=== PATIENT | female | born 1945 | race Hispanic/Latino ===

== ENCOUNTER 2017-10-24 07:48 | Day surgery (SDC) | payer MEDICARE, OTHER ==
[~2017-10-24] VITALS: Ht 157.5 cm; Wt 63.6 kg
[~2017-10-24 07:48] MED LIST: AMLO5TAB2 PO; FISH1CAP20 PO; LECI400C4 PO; LEVO25TA54 PO; MAGN400C PO; SODIUM CHLORIDE 0.9% 1000ML 1,000 ML IV ONE; [UNRECOGNIZED DRUG - OTHER] PO
[2017-10-24 08:27] VITALS: BP 150/80
[2017-10-24] MEDS ORDERED: PROPOFOL 10 MG/ML 20ML VIAL IV ONE ×2 (09:49)
[2017-10-24 09:56] VITALS: BP 102/61
[2017-11-07] MEDS ORDERED: CALC-724 PO (14:25)
[2017-11-07] MEDS ORDERED: BIOT5000 PO (14:25)
== END 2017-10-24 10:30 | disposition home or self-care (01) ==
LOC: SUH 07:48 → DAH 07:48 → SUH 10:30
PROVIDERS: ATTEND Internal Medicine Gastroenterology
DX: K92.1 Melena (principal); K22.8 Other specified diseases of esophagus; E03.9 Hypothyroidism, unspecified; M19.90 Unspecified osteoarthritis, unspecified site; Z86.010 Personal history of colon polyps; Z98.890 Other specified postprocedural states
CPT/HCPCS: 43249; 45378; A4606; C1726; J2704 ×2; J7030

== ENCOUNTER 2017-11-10 07:25 | Day surgery (SDC) | payer OTHER ==
[~2017-11-10] VITALS: Ht 157.5 cm; Wt 65.0 kg
[~2017-11-10 07:25] MED LIST changes: +BIOT5000 PO; +CALC-724 PO; -[UNRECOGNIZED DRUG - OTHER] PO
[2017-11-10 07:53] VITALS: BP 143/82
[2017-11-10] MEDS ORDERED: PROPOFOL 10 MG/ML 20ML VIAL IV ONE ×2 (09:02)
== END 2017-11-10 09:45 | disposition home or self-care (01) ==
LOC: DAH 07:25
PROVIDERS: ATTEND Internal Medicine Gastroenterology
DX: K92.1 Melena (principal); D12.0 Benign neoplasm of cecum; K57.90 Diverticulosis of intestine, part unspecified, without perforation or abscess without bleeding; M19.90 Unspecified osteoarthritis, unspecified site; Z86.010 Personal history of colon polyps
CPT/HCPCS: 45380; 88305; J2704 ×2; A4606; J7030

== ENCOUNTER → 2018-02-12 | Outpatient (CLI) | payer OTHER ==
[~2018-02-12] MED LIST changes: -SODIUM CHLORIDE 0.9% 1000ML 1,000 ML IV ONE
== END | disposition home or self-care (01) ==
LOC: OIH 14:06
PROVIDERS: ATTEND Family Medicine
DX: Z13.6 Encounter for screening for cardiovascular disorders (principal)
CPT/HCPCS: 75571

== ENCOUNTER → 2018-10-27 | Outpatient (CLI) | payer OTHER ==
[~2018-10-27] MED LIST changes: -AMLO5TAB2 PO; +AMLO5TAB9 PO; +ASPI-555 PO; +FAMO20TA8 PO; +IBUP-2070 PO; +ROSU5TAB11 PO
== END | disposition home or self-care (01) ==
LOC: SHCH 12:11
PROVIDERS: ATTEND Internal Medicine Cardiovascular Disease
DX: I71.4 Abdominal aortic aneurysm, without rupture (principal)
CPT/HCPCS: 93978

== ENCOUNTER 2018-10-29 05:51 | Observation (INO) | payer OTHER ==
[2018-10-28 16:52] LABS: BASOPHILS % (AUTO) 0.7 % (0.0-5.0); EOSINOPHILS % (AUTO) 1.4 % (0.0-8.0); HEMATOCRIT 35.5 % (36-48); MEAN CORPUSCULAR HEMOGLOBIN 29.1 pg (27.0-33.0); MEAN CORPUSCULAR HGB CONC 34.1 g/dL (32.0-36.0); MEAN CORPUSCULAR VOLUME 85.3 fL (79-99); MONOCYTES % (AUTO) 8.2 % (3.0-13.0); NEUTROPHILS % (AUTO) 53.7 % (40.0-77.0); PLATELET COUNT (AUTO) 232 K/uL (130-400); RED BLOOD CELL COUNT(AUTO) 4.16 MIL/uL (4.00-5.50); RED CELL DISTRIBUTION WIDTH 14.2 % (11.0-15.5); WHITE BLOOD COUNT (AUTO) 5.9 K/uL (4.8-10.8)
[2018-10-28 16:54] LABS: BILIRUBIN,URINE Negative (NEGATIVE); COLOR,URINE Yellow (YELLOW); GLUCOSE, URINE (UA) Negative (NEGATIVE); KETONES,URINE Negative (NEGATIVE); LEUKOCYTE ESTERASE ,URINE Small (NEGATIVE); NITRATE,URINE Negative (NEGATIVE); OCCULT BLOOD,URINE Small (NEGATIVE); PH,URINE 7.5 (5.0-8.0); PROTEIN,URINE Negative (NEGATIVE); UROBILINOGEN,URINE 0.2 mg/dL (0.2-1.0)
[2018-10-28 17:03] VITALS: BP 182/91
[2018-10-28 17:06] LABS: CREATININE 0.6 mg/dL (0.5-1.5); POTASSIUM 3.8 mmol/L (3.5-5.1)
[2018-10-28 17:09] LABS: INR 0.95 (0.85-1.15); PARTIAL THROMBOPLASTIN TIME 27.1 SEC (26.3-35.5)
--- NOTE | 2018-10-28 17:13 | NUR ---
NOTE PAGED MERON TO NOTIFY PATIENT REFUSAL OF BLOOD. NO CALL BACK. NOTIFY IN AM
[2018-10-28 17:35] LABS: APPEARANCE,URINE CLEAR (CLEAR)
[2018-10-28 17:36] LABS: BACTERIA,URINE Rare /HPF (None Seen); RBC,URINE 0-1 /HPF (0-1); SQUAMOUS EPITHELIAL CELL,UR 0-2 /HPF (0-2)
[2018-10-28 17:37] LABS: WBC,URINE 0-1 /HPF (0-1)
[~2018-10-29] VITALS: Ht 160 cm; Wt 69.4 kg
[2018-10-29] VITALS (23 sets, daily range): BP systolic 57–167; BP diastolic 30–91
[~2018-10-29 05:51] MED LIST changes: -BIOT5000 PO; -CALC-724 PO; -FISH1CAP20 PO; -LECI400C4 PO; -MAGN400C PO; +SODIUM CHLORIDE 0.9% 500ML 500 ML IV SCH
--- NOTE | 2018-10-29 07:22 | NUR ---
NOTE PAGED VIJAY CALIX TO NOTIFY BLOOD REFUSAL. WAITING ORTHOPEDIC SHOES SALESPERSON BACK.
--- NOTE | 2018-10-29 07:34 | NUR ---
NOTIFY CALL BACK FROM VIJAY CALIX, NOTIFIED PT REFUSE BLOOD AND BLOOD PRODUCTS.
--- NOTE | 2018-10-29 08:10 | NUR ---
REPORT GIVEN TO HORTENCIA DE LOS SANTOS, PT TRANSFERRED TO 202, PT AAOX3, NO C/O CHEST PAIN NO DISTRESS. NO HEMATOMA NO ACTIVE BLEEDING TO RT GROIN. SITE IS BRUISED S/P PROCEDURE.
--- NOTE | 2018-10-29 08:45 | NUR ---
NOTIFIED ROMEL WAGNER RN OF PT REFUSAL OF BLOOD AND BLOOD PRODUCTS. INFORMED THAT Makenna RIVERS IS AWARE, NO NEW ORDERS WERE RECEIVED.
[2018-10-29] MEDS ORDERED: SODIUM CHLORIDE 0.9% 1000ML 1,000 ML IV ONE (08:54)
[2018-10-29] MEDS ORDERED: IOHEXOL 350 MG/ML 100ML INFUS..BTL IV ONE ×2 (11:59→12:25)
[2018-10-29] MEDS ORDERED: IOHEXOL-350 50ML VIAL IV ONE ×2 (11:59→12:25)
[2018-10-29] MEDS ORDERED: LIDOCAINE HCL 1% 20 ML VIAL ONE (11:59)
[2018-10-29] MEDS ORDERED: HEPARIN SODIUM 1000UNIT/ML 10ML VIAL ONE (11:59)
[2018-10-29] MEDS ORDERED: ATROPINE SULFATE 0.1 MG/ML 10 ML SYG IVP ONE (12:24)
[2018-10-29] MEDS ORDERED: ASPIRIN 81MG TAB.CHEW ONE (13:06)
[2018-10-29] MEDS ORDERED: CLOPIDOGREL BISULFATE 300 MG TAB ONE (13:06)
[2018-10-29] MEDS ORDERED: ACETAMINOPHEN 325 MG TAB PO PRN (13:30)
[2018-10-29] MEDS ORDERED: MORPHINE SULFATE 5 MG/ML VIAL IVP SCH (13:30)
[2018-10-29] MEDS ORDERED: ONDANSETRON HCL 4 MG/2 ML VIAL IVP SCH (13:30)
--- NOTE | 2018-10-29 15:27 | NUR ---
BRANNON CATH 16 [employer] FC INSERTED USING STERILE TECHNIQUE, PT C/O URINE RETENTION , PAIN TO LOWER ABDOMEN AREA , ABDOMEN DISTENDED , TENDER TO TOUCH,
[2018-10-29 16:25] LABS: INR 1.09 (0.85-1.15); PROTHROMBIN TIME 11.4 SEC (9.6-11.6)
[2018-10-29 16:27] LABS: PARTIAL THROMBOPLASTIN TIME > 120.0 SEC (26.3-35.5)
--- NOTE | 2018-10-29 16:39 | NUR ---
NURSING: PT HAD A SMALL HEMATOMA TO RT GROIN, 6 F SHEATH STILL INTACT. HELD MANUAL PRESSURE STARTING [id number] TO 1521. PT BLOOD PRESSURE DECLINED, GIVEN HALF AMP ATROPINE AT 1459 AND BOLUS FLUIDS NS 0.9 IV PT AAOX3, NO CHEST DISCOMFORT, CONTINUE TO MONITOR. HEMATOMA RESOLVED ON ITS OWN. NO ACTIVE BLEEDING DRESSING AND INTACT. PT STABLE NO DISTRESS.
--- NOTE | 2018-10-29 18:36 | NUR ---
INFORMED MINDY [place] PIPE CONNECTOR OF PATIENT'S LOCATION. DR. ARMENTA ORDERED TO ADMIT PATIENT UNDER [employer] SERVICES.
[2018-10-29] MEDS: ATORVASTATIN CALCIUM 10 MG TABLET PO SCH (20:50)
[2018-10-29] MEDS: FAMOTIDINE 20MG TAB 20 MG TAB PO SCH (20:50)
[2018-10-29] MEDS: AMLODIPINE BESYLATE 5 MG TAB PO SCH (21:00)
[2018-10-29] MEDS ORDERED: SODIUM CHLORIDE 0.9% 500ML 500 ML IV SCH (22:59)
[2018-10-29] MEDS ORDERED: CEFAZOLIN SODIUM 1 GM VIAL IVP PRN (23:00)
[2018-10-30] VITALS (13 sets, daily range): BP systolic 116–132; BP diastolic 60–84
--- NOTE | 2018-10-30 00:08 | NUR ---
Informed Patient of PPM in the morning. Patient and Dtr. refused to signed the consent. Patient is requesting for Dr. Gustavo Clarke to insert Permanent pacemaker. Patient and Dtr. requesting to talk to Dr. Chen in the A.M. Will cont. to monitor Patient's condition.
[2018-10-30] MEDS ORDERED: ATROPINE SULFATE 0.1 MG/ML 10 ML SYG IVP ONE (00:43)
--- NOTE | 2018-10-30 01:30 | NUR ---
Discontinued #6 fr. Sheath, from Rt. Groin. Cath intact. Pressure held 30-mins. No Bleeding noted. No hematoma noted. Minor discomfort. Pulses Present by Doppler. Rt. Lower extremity warm. Pressure Drsg. in place. Patient tolerated procedure well. Instructed Patient to remain bedrest until 0730. Will cont. to monitor Patient's status. Patient denies other discomfort at this time.
[2018-10-30 03:52] LABS: HEMATOCRIT 31.5 % (36-48); MEAN CORPUSCULAR HGB CONC 34.3 g/dL (32.0-36.0); MEAN CORPUSCULAR VOLUME 84.6 fL (79-99); NUCLEATED RED BLOOD CELLS 0.1 % (0.0-0.19); PLATELET COUNT (AUTO) 194 K/uL (130-400); RED BLOOD CELL COUNT(AUTO) 3.72 MIL/uL (4.00-5.50); RED CELL DISTRIBUTION WIDTH 14.2 % (11.0-15.5); WHITE BLOOD COUNT (AUTO) 5.6 K/uL (4.8-10.8)
[2018-10-30 04:20] LABS: POTASSIUM 3.2 mmol/L (3.5-5.1)
--- NOTE | 2018-10-30 07:35 | NUR ---
ASSESSMENT ENCOUNTERED PT A&OX3, CALM COOPERATIVE AND DOES NOT APPEAR TO BE IN ANY DISTRESS NOR ANY NEURO DEFICITS PRESENT. PT DENIES PAIN, SOB, NAUSEA. RT GROIN SOFT NONTENDER WITH NO OOZING OR HEMATOMA PRESENT. DP/PT PULSES PALPABLE AND VERIFIED BY DOPPLER. PT REPOSITIONED TO SITTING POSITION, TELEMONITOR DISPLAYS NSR. PT IS NPO FOR PACEMAKER PLACEMENT. CALL LIGHT WITHIN REACH, FAMILY AT BEDSIDE.
--- NOTE | 2018-10-30 08:20 | NUR ---
Report given to Luis Restrepo R.N. Patient in stable condition.
[2018-10-30] MEDS: FAMOTIDINE 20MG TAB 20 MG TAB PO SCH ×2 (09:00→21:31)
[2018-10-30] MEDS ORDERED: LEVOTHYROXINE 25 MCG TABLET PO SCH (09:00)
--- NOTE | 2018-10-30 11:15 | NUR ---
BEDREST COMPLETE PT AMBULATED TO CHAIR, GAIT SLOW BUT STEADY WITH STAND BY ASSIST. PT DENIES PAIN, SOB, NAUSEA OR DIZZINESS. PT RESTING COMFORTABLY, CALL LIGHT WITHIN REACH, FAMILY AT BEDSIDE.
--- NOTE | 2018-10-30 11:24 | NUR ---
LIGHTHEADEDNESS PT C/O LIGHTHEADEDNESS UP IN CHAIR, TELE MONITOR DISPLAYS MOBITZ TYPE I RHYTHM. PT REPOSITIONED BACK TO BED, LIGHTHEADEDNESS HAS RESOLVED BUT PT CONTINUES TO HAVE INTERMITTENT MOBITZ TYPE I AND NSR. CALL LIGHT WITHIN REACH, FAMILY AT BEDSIDE.
[2018-10-30] MEDS ORDERED: LIDOCAINE HCL 1% MDV 50ML VIAL ONE (14:28)
[2018-10-30] MEDS ORDERED: BUPIVACAINE/PF 0.25% 10ML VIAL IJ ONE (14:29)
[2018-10-30] MEDS ORDERED: CEFAZOLIN SODIUM 1 GM VIAL ONE (14:47)
[2018-10-30] MEDS ORDERED: MEPERIDINE-PF 25 MG/ML SYG ONE ×2 (14:54→15:19)
[2018-10-30] MEDS ORDERED: MIDAZOLAM HCL 1 MG/ML 2ML VIAL ONE ×2 (14:54→15:18)
[2018-10-30] MEDS ORDERED: ACETAMINOPHEN-CODEINE 300/30MG TAB PO PRN ×2 (16:00)
[2018-10-30] MEDS ORDERED: ACETAMINOPHEN 325 MG TAB PO PRN (16:00)
--- NOTE | 2018-10-30 16:35 | NUR ---
POST PROCEDURE RECEIVED PT FROM STAFF TOXICOLOGIST, IN SEMI ORTA'S POSITION, A&OX3, CALM COOPERATIVE AND DOES NOT APPEAR TO BE IN ANY DISTRESS NOR ANY NEURO DEFICITS PRESENT. LEFT SHOULDER DRESSING, DRY INTACT AND SECURED WITH ARM SLING. PULSES PALPABLE. PT ON BEDREST FOR 4 HOURS. CALL LIGHT WITHIN REACH, FAMILY AT BEDSIDE.
[2018-10-30] MEDS: CLOPIDOGREL BISULFATE 75 MG TAB PO SCH (17:41)
[2018-10-30] MEDS: ASPIRIN 81MG TAB.CHEW PO SCH (17:42)
[2018-10-30] MEDS: AMLODIPINE BESYLATE 5 MG TAB PO SCH (21:31)
[2018-10-30] MEDS: ATORVASTATIN CALCIUM 10 MG TABLET PO SCH (21:31)
[2018-10-31 03:51] VITALS: BP 134/78
[2018-10-31 05:20] VITALS: BP 81/57
[2018-10-31 05:39] VITALS: BP_SYST 67; BP_SYST 68; BP_DIAS 42
[2018-10-31 05:49] VITALS: BP 106/69
[2018-10-31 05:56] LABS: HEMATOCRIT 30.2 % (36-48); MEAN CORPUSCULAR HGB CONC 34.1 g/dL (32.0-36.0); MEAN CORPUSCULAR VOLUME 85.1 fL (79-99); PLATELET COUNT (AUTO) 216 K/uL (130-400); RED BLOOD CELL COUNT(AUTO) 3.55 MIL/uL (4.00-5.50); RED CELL DISTRIBUTION WIDTH 14.5 % (11.0-15.5); WHITE BLOOD COUNT (AUTO) 8.8 K/uL (4.8-10.8)
[2018-10-31 05:57] VITALS: BP 107/69
--- NOTE | 2018-10-31 05:59 | NUR ---
Dr. Resendez notified of symptomatic hypotension 68/42. pt diaphoretic. vomitting episode x 1. and 2 second pauses x3 reported. Concern of failure to capture reported. MD ordered CBC BMP Mag and CXR. MD to make rounds. Pts current BP 107/69, paced in 80's.
[2018-10-31 06:03] LABS: MAGNESIUM 1.9 mg/dL (1.80-2.40); POTASSIUM 3.2 mmol/L (3.5-5.1)
[2018-10-31] MEDS ORDERED: LEVOTHYROXINE 25 MCG TABLET PO SCH (06:30)
--- NOTE | 2018-10-31 07:40 | NUR ---
ASSESSMENT ENCOUNTERED PT A&OX3, CALM COOPERATIVE AND DOES NOT APPEAR TO BE IN ANY DISTRESS NOR ANY NEURO DEFICITS PRESENT. PT DENIES PAIN, SOB, NAUSEA. RT GROIN SOFT NONTENDER WITH NO OOZING OR HEMATOMA PRESENT. DP/PT PULSES PALPABLE. LEFT SHOULDER DRESSING DRY, INTACT AND SECURED WITH ARM SLING. PT ON BEDREST UNTIL SEEN BY DR GRANDE. CALL LIGHT WITHIN REACH, FAMILY AT BEDSIDE.
[2018-10-31 07:51] VITALS: BP 118/60
--- NOTE | 2018-10-31 08:30 | NUR ---
DR GRANDE AT BEDSIDE UPDATE GIVEN, ORDERS RECEIVED TO HAVE PACEMAKER INTERROGATED.
[2018-10-31] MEDS ORDERED: TYL3 PO (09:10)
--- NOTE | 2018-10-31 10:00 | NUR ---
PACEMAKER INTERROGATION TOLERATING WELL. CALL LIGHT WITHIN REACH, FAMILY ALT BEDSIDE.
[2018-10-31] MEDS: ASPIRIN 81MG TAB.CHEW PO SCH (10:04)
[2018-10-31] MEDS: CLOPIDOGREL BISULFATE 75 MG TAB PO SCH (10:04)
[2018-10-31] MEDS: FAMOTIDINE 20MG TAB 20 MG TAB PO SCH (10:04)
--- NOTE | 2018-10-31 12:00 | NUR ---
AMBULATION PT AMBULATING IN HALLWAY, GAIT STEADY AND STRONG WITH STAND BY ASSIST. PT DENIES DIZZINESS OR LIGHTHEADEDNESS. TOLERATED WELL, CALL LIGHT WITHIN REACH, FAMILY AT BEDSIDE.
--- NOTE | 2018-10-31 13:00 | NUR ---
DISCHARGE INSTRUCTIONS GIVEN, PIV REMOVED AND INTACT, DISCHARGED HOME TO FAMILY VEHICLE VIA WHEELCHAIR.
== END 2018-10-31 14:00 | disposition home or self-care (01) ==
LOC: DAH 05:51 → DAHIP 05:52 → DAH 05:52 → 2AH 18:22
PROVIDERS: ADMIT Internal Medicine Pulmonary Disease; ATTEND Internal Medicine Pulmonary Disease
DX: I25.119 Atherosclerotic heart disease of native coronary artery with unspecified angina pectoris (principal); E78.5 Hyperlipidemia, unspecified; E03.9 Hypothyroidism, unspecified; I10 Essential (primary) hypertension; I44.1 Atrioventricular block, second degree; Z79.899 Other long term (current) drug therapy; M19.90 Unspecified osteoarthritis, unspecified site; Z82.49 Family history of ischemic heart disease and other diseases of the circulatory system; Z79.82 Long term (current) use of aspirin; Z79.890 Hormone replacement therapy; Z95.0 Presence of cardiac pacemaker; Z79.01 Long term (current) use of anticoagulants
CPT/HCPCS: 33208; 36415 ×4; 71045 ×2; 80048 ×3; 81001; 82948; 83735; 85025; 85027 ×2; 85610 ×2; 85730 ×3; 93005; 93458; A4606; C1769 ×2; C1785; C1874 ×2; C1887 ×2; C1894; C1898 ×2; C9600 ×2; G0378 ×56; J0690; J1644 ×3; J2175 ×2; J2250 ×2; J3490 ×2; J7030; Q9965 ×2; Q9967 ×4; 99156; 99157; J0461

== ENCOUNTER → 2018-11-18 | Outpatient (CLI) | payer OTHER ==
[~2018-11-18] MED LIST changes: -SODIUM CHLORIDE 0.9% 500ML 500 ML IV SCH; +TYL3 PO
== END | disposition home or self-care (01) ==
LOC: RAH 08:40
PROVIDERS: ATTEND Internal Medicine Gastroenterology
DX: R10.13 Epigastric pain (principal); Z90.49 Acquired absence of other specified parts of digestive tract
CPT/HCPCS: 76700

== ENCOUNTER → 2019-10-26 | Outpatient (CLI) | payer OTHER ==
[~2019-10-26] MED LIST changes: -ROSU5TAB11 PO; +ROSU5TAB12 PO
== END | disposition home or self-care (01) ==
LOC: RAH 07:36
PROVIDERS: ATTEND Internal Medicine Gastroenterology
DX: R10.13 Epigastric pain (principal); I70.90 Unspecified atherosclerosis
CPT/HCPCS: 76700

== ENCOUNTER → 2019-11-08 | Outpatient (CLI) | payer OTHER ==
[~2019-11-08] VITALS: Ht 154.9 cm; Wt 68.9 kg
[~2019-11-08] MED LIST changes: +REGADENOSON 0.4 MG/5 ML PF SYG IVP SCH
== END | disposition home or self-care (01) ==
LOC: SHCH 09:10
PROVIDERS: ATTEND Internal Medicine Cardiovascular Disease
DX: I25.10 Atherosclerotic heart disease of native coronary artery without angina pectoris (principal); R94.31 Abnormal electrocardiogram [ECG] [EKG]
CPT/HCPCS: 78452; 93017; 96374; A9500 ×2; J2785

== ENCOUNTER 2023-08-27 12:12 | Emergency (ER) | payer OTHER, MEDICARE ==
[~2023-08-27] VITALS: Ht 154.9 cm; Wt 70.3 kg
[~2023-08-27 12:12] MED LIST changes: +AMLO-257 PO; -AMLO5TAB9 PO; -ASPI-555 PO; +ASPI-556 PO; -REGADENOSON 0.4 MG/5 ML PF SYG IVP SCH
[2023-08-27 13:26] LABS: BASOPHILS # (AUTO) 0.02 K/uL (0.00-0.20); BASOPHILS % (AUTO) 0.4 % (0.0-5.0); EOSINOPHILS # (AUTO) 0.05 K/uL (0.00-0.70); EOSINOPHILS % (AUTO) 0.9 % (0.0-8.0); HEMATOCRIT 36.4 % (36-48); IMMATURE GRANULOCYTE ABSOLUTE 0.01 K/uL (0-1); LYMPHOCYTES # (AUTO) 1.9 K/uL (1.0-4.8); LYMPHOCYTES % (AUTO) 35.5 % (21.0-51.0); MEAN CORPUSCULAR HEMOGLOBIN 29.5 pg (27.0-33.0); MEAN CORPUSCULAR HGB CONC 33.2 g/dL (32.0-36.0); MEAN CORPUSCULAR VOLUME 88.8 fL (79-99); MONOCYTES # (AUTO) 0.4 K/uL (0.1-1.0); MONOCYTES % (AUTO) 6.8 % (3.0-13.0); NEUTROPHILS # (AUTO) 3.1 K/uL (1.8-7.7); NEUTROPHILS % (AUTO) 56.2 % (40.0-77.0); PLATELET COUNT (AUTO) 230 K/uL (130-400); RED CELL DISTRIBUTION WIDTH 13.3 % (11.0-15.5); WHITE BLOOD COUNT (AUTO) 5.4 K/uL (4.8-10.8)
[2023-08-27] MEDS ORDERED: MECLIZINE HCL 25 MG TABLET PO ONE (13:30)
[2023-08-27] MEDS ORDERED: METOCLOPRAMIDE 10 MG/2 ML VIAL IVP ONE (13:30)
[2023-08-27 13:38] LABS: CREATININE 0.9 mg/dL (0.5-1.5); POTASSIUM 3.7 mmol/L (3.5-5.1)
[2023-08-27 13:49] LABS: MAGNESIUM 2.1 mg/dL (1.80-2.40); THYROID STIMULATING HORMONE 2.61 uIU/mL (0.36-3.74)
[2023-08-27 14:07] LABS: ADD UA MICROSCOPIC YES; APPEARANCE,URINE CLEAR (CLEAR); BILIRUBIN,URINE NEGATIVE (NEGATIVE); COLOR,URINE YELLOW (YELLOW); GLUCOSE, URINE (UA) NEGATIVE (NEGATIVE); KETONES,URINE NEGATIVE (NEGATIVE); LEUKOCYTE ESTERASE ,URINE 75 Leu/uL (NEGATIVE); NITRATE,URINE NEGATIVE (NEGATIVE); OCCULT BLOOD,URINE NEGATIVE (NEGATIVE); PH,URINE 6.5 (5.0-8.0); PROTEIN,URINE NEGATIVE (NEGATIVE); UROBILINOGEN,URINE 0.2 mg/dL (0.2-1.0)
[2023-08-27 14:09] LABS: MUCUS,URINE RARE LPF (None Seen); OTHER CASTS, URINE 3 /LPF (None Seen); SQUAMOUS EPITHELIAL CELL,UR RARE /HPF (0-2)
[2023-08-27 15:57] VITALS: BP 119/64; PULSE 73; RESP 17; O2SAT 96
[2023-08-27] MEDS ORDERED: PHEN-847 PO (15:58)
[2023-08-27] MEDS ORDERED: CEPH250 PO (15:58)
[2023-08-27] MEDS ORDERED: MECL-302 PO (15:58)
== END 2023-08-27 16:08 | disposition home or self-care (01) ==
LOC: EDH 12:12
DX: R42 Dizziness and giddiness (principal); N39.0 Urinary tract infection, site not specified; E78.00 Pure hypercholesterolemia, unspecified; I10 Essential (primary) hypertension; M19.90 Unspecified osteoarthritis, unspecified site; Z79.82 Long term (current) use of aspirin; Z79.890 Hormone replacement therapy; Z95.810 Presence of automatic (implantable) cardiac defibrillator
CPT/HCPCS: 99284; 96374; 84443; 83735; 84484; 80048; 85025; 87088; 81001; 36415; 93005; J2765

== ENCOUNTER → 2025-04-01 | Outpatient (CLI) | payer OTHER, MEDICARE ==
[~2025-04-01] MED LIST changes: +CEPH250 PO; +IBUP-1492 PO; -IBUP-2070 PO; +MECL-302 PO; +PHEN-847 PO; -ROSU5TAB12 PO; +ROSU5TAB51 PO
--- NOTE | 2025-04-01 10:30 | HMCIMG ---
US ABDOMINAL COMPLETE HISTORY: Abdominal pain COMPARISON: None TECHNIQUE: Multiple transverse and longitudinal ultrasound images of the abdomen were obtained. FINDINGS: Abdominal aorta and inferior vena cava are unremarkable. There is atherosclerosis. The visualized portion of the pancreas is within normal limits. Liver is echogenic consistent with liver parenchymal disease. Gallbladder has been removed. Common duct measures 6 mm. Both kidneys are seen. Right kidney measures 10.6 x 4.9 x 3.8 cm. Left kidney measures 10.8 x 5.3 x 4.5 cm. No hydronephrosis is seen of the both kidneys. The spleen is grossly unremarkable. IMPRESSION: 1. Post cholecystectomy. No ductal dilatation is seen. 2. No hydronephrosis is seen.
--- NOTE | 2025-04-01 13:21 | HMCIMG ---
US MESENTERIC REASON: abd pain, Pelvic and perineal pain. COMPARISON: None TECHNIQUE: Mesentery artery ultrasound study was performed. FINDINGS: Peak systolic velocity of proximal celiac artery is 224 cm/s and proximal superior mesenteric artery is 288 cm/s. 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 IMPRESSION: Findings as described above.
--- NOTE | 2025-04-01 13:22 | HMCIMG ---
US PELVIC NON-OB COMP HISTORY: Pain COMPARISON: None TECHNIQUE: Transabdominal pelvic ultrasound study was performed. FINDINGS: The uterus measures 4.9 x 2.1 x 3.7 cm. The right ovary measures 12 x 4 x 9 mm. The left ovary measures 12 x 7 x 11 mm. Endometrial thickness is not well visualized. No free fluid is seen in the cul-de-sac. IMPRESSION: 1. No adnexal mass is seen.
== END | disposition home or self-care (01) ==
LOC: RAH 07:45
PROVIDERS: ATTEND Family Medicine
DX: R10.2 Pelvic and perineal pain (principal); R10.30 Lower abdominal pain, unspecified; I87.8 Other specified disorders of veins; I70.8 Atherosclerosis of other arteries; Z90.49 Acquired absence of other specified parts of digestive tract
CPT/HCPCS: 76700; 76856; 93975

== ENCOUNTER → 2025-06-10 | Outpatient (CLI) | payer OTHER, MEDICARE ==
[~2025-06-10] MED LIST changes: +IOHEXOL 350 MG/ML 100ML INFUS..BTL IV ONE
--- NOTE | 2025-06-18 10:44 | HMCIMG ---
INDICATION: Celiac artery compression syndrome,Chronic vascular disorders of intestine. COMPARISON: None. TECHNIQUE: After obtaining the patient's consent, CT images of the abdomen were obtained with non-ionic intravenous contrast material. Multiplanar image reconstruction was performed. In addition, Multiplanar MIP reconstructions were created and interpreted to optimize visualization of vascular anatomy. Numerous low-radiation dose strategies were employed including AEC (Automatic Exposure Control) and individualized BMI-based low dose scan protocols. The exam was performed on a CT scanner that is compliant with the NEMA XR-29 Smart Dose Standard. DICOM Radiation Dose Structured Reporting capability and Dose Check Standard are also features of this scanner. RADIATION DOSE ESTIMATE: CTDIvol (mGy): 73.80 \ DLP (mGy-cm): 1284.70 FINDINGS: ABDOMINAL AORTA: There is diffuse atherosclerotic changes of the abdominal aorta with calcified plaque. There is no stenosis seen.. No aneurysm or dissection. RENAL/VISCERAL: Normal. No significant renal or mesenteric arterial stenosis. There is atherosclerotic changes with calcified plaque seen at the celiac axis and the superior mesenteric artery origin. The celiac artery and its branches are patent the superior mesenteric artery branches are patent. ILIAC ARTERIES: Normal. No significant stenosis or aneurysm. Common femoral superficial femoral and profunda femoris arteries appears patent. OTHER VASCULAR: There is coronary calcification suggesting of coronary artery disease.. There is cardiomegaly. There is pacemaker leads seen in right atrium and right ventricle which is giving off the mid LIVER: Normal. No enlargement or significant focal lesion. Portal vein is patent. BILIARY: The gallbladder is surgically absent. No visible dilatation or calcification. PANCREAS: Normal. No lesion, fluid collection, ductal dilatation, or acute inflammation. SPLEEN: Normal. No enlargement or focal lesion. KIDNEYS: Normal. No mass, obstruction, or nephrolithiasis. ADRENALS: Normal. No mass or enlargement. RETROPERITONEUM: Normal. No mass or adenopathy. BOWEL/MESENTERY: Normal. No visible mass, obstruction, or bowel wall thickening. There are occasional diverticulosis without evidence of diverticulitis pronounced in the descending and sigmoid colon. ABDOMINAL WALL: Normal. No mass or hernia. BONES: There is multilevel disc disease mostly lower thoracic and lower lumbar spine. There is no evidence of compression fracture. LUNG BASES: Normal. No visible pulmonary of pleural disease. OTHER: There is a moderate-sized hiatal hernia.. Pelvis: IMPRESSION There is diffuse atherosclerotic change of the abdominal aorta including the origin of the celiac axis and superior mesenteric artery. If patient is symptomatic I would recommend visceral arteriogram which can be performed in IR suite Coronary calcification suggesting of coronary artery disease Moderate-sized hiatal hernia. Scattered diverticulosis most pronounced in the sigmoid colon.
== END | disposition home or self-care (01) ==
LOC: RAH 10:01
PROVIDERS: ATTEND Internal Medicine Cardiovascular Disease
DX: K44.9 Diaphragmatic hernia without obstruction or gangrene (principal); K55.1 Chronic vascular disorders of intestine; I77.4 Celiac artery compression syndrome; I70.0 Atherosclerosis of aorta; I25.10 Atherosclerotic heart disease of native coronary artery without angina pectoris; K57.30 Diverticulosis of large intestine without perforation or abscess without bleeding; M47.816 Spondylosis without myelopathy or radiculopathy, lumbar region; I70.8 Atherosclerosis of other arteries
CPT/HCPCS: 74174; Q9967